=== PATIENT | male | born 1990 | race Caucasian/White ===

== ENCOUNTER 2017-05-15 13:27 | Emergency (ER) | payer OTHER ==
[~2017-05-15] VITALS: Ht 167.6 cm; Wt 63.5 kg
[2017-05-15 13:29] VITALS: BP_SYST 120
[2017-05-15] MEDS ORDERED: NACL 0.9% 1,000 ML IV ONE (13:38)
[2017-05-15 14:32] LABS: INR 1.1 (0.80-1.20); PROTHROMBIN TIME 11.4 SECS (9.5-12.5)
[2017-05-15 15:15] LABS: BASOPHILS % (AUTO) 0.9 % (0.0-2.0); EOSINOPHILS % (AUTO) 0.6 % (0.0-4.0); HEMOGLOBIN 13.4 g/dL (14.0-18.0); LYMPHOCYTES # (AUTO) 0.6 K/uL (1.0-5.5); LYMPHOCYTES % (AUTO) 15.1 % (20.5-51.5); MEAN CORPUSCULAR HEMOGLOBIN 32 pg (27-31); MEAN CORPUSCULAR HGB CONC 33 % (32-36); MEAN CORPUSCULAR VOLUME 95 fL (79.0-98.0); MONOCYTES # (AUTO) 0.4 K/uL (0.0-1.0); MONOCYTES % (AUTO) 10.5 % (1.7-9.3); NEUTROPHILS % (AUTO) 72.9 % (40.0-70.0); PLATELET COUNT (AUTO) 156 K/uL (130-430); RED BLOOD CELL COUNT(AUTO) 4.22 MIL/uL (4.2-6.2); RED CELL DISTRIBUTION WIDTH 12.2 % (9.0-15.0)
[2017-05-15 15:30] LABS: ANION GAP 12 (5-15); CALCIUM 9.1 mg/dL (8.4-11.0); CHLORIDE 95 mmol/L (98-107); CREATININE 0.75 mg/dL (0.55-1.30); GLUCOSE 125 mg/dL (70-99); SODIUM SERUM 134 mmol/L (136-145); UREA NITROGEN, BLOOD 6 mg/dL (8-21)
[2017-05-15 15:35] LABS: GFR AFRICAN AMERICAN 161 mL/min (>90)
[2017-05-15 15:59] LABS: ALANINE AMINOTRANSFERASE 382 U/L (12-78); ALBUMIN 3.1 g/dL (3.4-4.8); ASPARTATE AMINOTRANSFERASE 634 U/L (10-37); TOTAL BILIRUBIN 1.4 mg/dL (0.0-1.0)
[2017-05-15] MEDS ORDERED: KCL 40 mEq in 100 mL (PREMIX) 100 ML IV ONE (16:00)
[2017-05-15] MEDS ORDERED: FOLIC ACID 1 MG, THIAMINE HCL 100 MG, MAGNESIUM SULFATE 1 GM, MVI 10 ML in NACL 0.9% 1,... IV ONE (16:00)
[2017-05-15 16:01] LABS: LIPASE 352 U/L (73-393)
[2017-05-15 16:28] LABS: POTASSIUM 2.9 mmol/L (3.5-5.1)
[2017-05-15 16:30] LABS: CREATINE KINASE MB 1.1 ng/mL (0-3.6)
[2017-05-15 16:32] LABS: CKMB RELATIVE INDEX 0.2 (0.0-2.9)
[2017-05-15 16:39] LABS: CREATINE KINASE MB 1.1 ng/mL (0-3.6)
[2017-05-15 16:40] LABS: CKMB RELATIVE INDEX 0.2 (0.0-2.9)
[2017-05-15 17:20] VITALS: BP_SYST 122
== END 2017-05-15 17:20 | disposition home or self-care (01) ==
LOC: SED 13:27
DX: S00.12XA Contusion of left eyelid and periocular area, initial encounter (principal); S60.512A Abrasion of left hand, initial encounter; E87.6 Hypokalemia; F10.239 Alcohol dependence with withdrawal, unspecified; Y90.0 Blood alcohol level of less than 20 mg/100 ml; W19.XXXA Unspecified fall, initial encounter; Y93.89 Activity, other specified; Y92.89 Other specified places as the place of occurrence of the external cause; Y99.8 Other external cause status
CPT/HCPCS: 36415; 70450; 71045; 80053; 82550; 82553; 83690; 84484; 85025; 85610; 85730; 93005; 96360; 99285; G0482; J7030